=== PATIENT | female | born 1990 | race African-American/Black ===

== ENCOUNTER → 2017-07-14 | Outpatient (CLI) | payer OTHER ==
--- NOTE | 2017-07-14 16:35 | REP ---
Bilateral knee MRI study without contrast: History: Bilateral knee pain. Technique: Axial, coronal, and sagittal imaging planes utilized for T1, proton density and T2-weighted scans obtained in the usual fashion with and without fat saturation bilaterally Left knee MRI findings: There is a posteromedial Rodas's cyst in the popliteal soft tissues. This extends over a craniocaudal span of 4.5 cm. It is small in transverse dimension measuring 0.7 x 1.0 cm. No significant joint effusion is seen. No juxtaarticular mass or other cyst is seen. Cortical and medullary bone signal intensity are normal. Patellar and quadriceps tendons are intact. Anterior and posterior cruciate ligaments have an intact appearance. There is no evidence of medial or lateral collateral ligament disruption. No articular cartilaginous lesion is seen. No medial or lateral meniscal tear is appreciated. Impression: Small Rodas's cyst. No internal derangement seen. Right knee MRI findings: Cortical and medullary bone signal intensity are normal. No significant joint effusion is seen. No Rodas's cyst is seen. Patellar and quadriceps tendons are unremarkable. Anterior and posterior cruciate ligaments are intact. There is no evidence of medial or lateral collateral ligament disruption. No articular cartilage lesion is seen. No meniscal tear is seen in the medial or lateral meniscus. Impression: No internal derangement seen. Signed by Ezequiel Guerra MD 07/14/2017 05:20 P
== END ==
LOC: M RAD 12:43
PROVIDERS: ATTEND Student in an Organized Health Care Education/Training Program
DX: M25.561 Pain in right knee (principal); M25.562 Pain in left knee